=== PATIENT | male | born 1970 | race Caucasian/White ===

== ENCOUNTER 2025-08-06 20:24 | Emergency (ER) | payer OTHER ==
[2025-08-06 22:28] LABS: Absolute Lymphocytes (CBC) 2.4 K/uL (0.7-4.9); Hematocrit 46.6 % (39.6-49.0); Hemoglobin 16.3 g/dL (13.6-17.9); MCH 34.8 pg (27.0-35.0); MCHC 35.0 g/dL (32.0-36.0); MCV 99.6 fL (80-100); MPV 8.1 fL (7.6-11.3); Nucleated RBC Absolute Count 0.0 (0-0); Nucleated Red Blood Cells % 0.0 % (0-0); RBC Red Blood Cell Count 4.68 M/uL (4.33-5.43); White Blood Count 10.20 thou/uL (4.3-10.9)
[2025-08-06 22:53] LABS: Anion Gap 9.5 mEq/L (5.0-15.0); BUN Blood Urea Nitrogen 13.0 mg/dL (7-18); Glucose Level 99.0 mg/dL (74-106); Potassium 3.5 mEq/L (3.5-5.1)
--- NOTE | 2025-08-07 01:55 | ER ---
[facility] Name: Nghia Cr Age: 55 yrs Sex: Male : 1970 Arrival Date: 08/06/2025 Time: 20:24 Bed 3 Private MD: Diagnosis: Pain in throat Presentation: 08/06 20:33 Chief complaint: Patient states: Pain in right side of throat with difficult nh2 swallowing. Went to [facility] swabbed for strep, tested negative. prescribed prednisone. Coronavirus screen: Client denies travel out of the [place] in the last 14 days. At this time, the client does not indicate any symptoms associated with coronavirus-19. Ebola Screen: Patient negative for fever greater than or equal to 101.5 degrees Fahrenheit, and additional compatible Ebola Virus Disease symptoms Patient denies exposure to infectious person. Patient denies travel to an Ebola-affected area in the 21 days before illness onset. No symptoms or risks identified at this time. Initial Sepsis Screen: Does the patient meet any 2 criteria? No. Patient's initial sepsis screen is negative. Initial Sepsis Screen: Does the patient have a suspected source of infection? No. Patient's initial sepsis screen is negative. Risk Assessment: Do you want to hurt yourself or someone else? Patient reports no desire to harm self or others. Onset of symptoms was August 06, 2025 at 14:30. 20:33 Method Of Arrival: Ambulatory nh2 20:33 Acuity: DIALLO 3 nh2 Triage Assessment: 20:39 General: Appears in no apparent distress. comfortable, well groomed, well developed, nh2 Behavior is calm, cooperative, appropriate for age. Pain: Complains of pain in right aspect of posterior pharynx Pain does not radiate. Pain currently is 0 out of 10 on a pain scale. at worst was 10 out of 10 on a pain scale. EENT: Throat is reddened on right. Neuro: Level of Consciousness is awake, alert, obeys commands, Oriented to person, place, time, situation, Appropriate for age. Cardiovascular: Heart tones S1 S2 present Capillary refill < 3 seconds Patient's skin is warm and dry. Respiratory: Airway is patent Respiratory effort is even, unlabored, Respiratory pattern is regular, symmetrical. GI: No deficits noted. No signs and/or symptoms were reported involving the gastrointestinal system. : No deficits noted. No signs and/or symptoms were reported regarding the genitourinary system. Derm: Skin is intact, is healthy with good turgor, Skin is dry, Skin is normal, Skin temperature is warm. Musculoskeletal: Circulation, motion, and sensation intact. Range of motion: intact in all extremities. Historical: - Allergies: 20:38 No Known Allergies; nh2 - PMHx: 20:38 acid reflux; bowel obstruction; High Cholesterol; Hypertension; nh2 - PSHx: 20:38 None; nh2 - Immunization history:: Client reports receiving the 2nd dose of the Covid vaccine. - Infectious Disease History:: Denies. - Social history:: Smoking status: Patient reports the use of cigarette tobacco products, cigars. Screenin:38 [facility] ED Fall Risk Assessment (Adult) History of falling in the last 3 months, nh2 including since admission No falls in past 3 months (0 pts) Confusion or Disorientation No (0 pts) Intoxicated or Sedated No (0 pts) Impaired Gait No (0 pts) Mobility Assist Device Used No (0 pt) Altered Elimination No (0 pt) Score/Fall Risk Level 0 - 2 = Low Risk Oriented to surroundings, Maintained a safe environment, Educated pt \T\ family on fall prevention, incl call for assistance when getting out of bed, Assessed \T\ reinforced patient's understanding of fall precautions, Hourly rounding (assess needs \T\ fall precautionary measures) done. Abuse screen: Denies threats or abuse. Nutritional screening: No deficits noted. Tuberculosis screening: No symptoms or risk factors identified. Assessment: 21:25 General: Appears in no apparent distress. comfortable, Behavior is calm, cooperative, mf3 appropriate for age. Pain: Denies pain. Neuro: Level of Consciousness is awake, alert, obeys commands, Oriented to person, place, time, situation. Cardiovascular: Capillary refill < 3 seconds. Respiratory: Airway is patent Trachea midline. GI: No deficits noted. Derm: No signs and/or symptoms reported regarding the dermatologic system. Musculoskeletal:. 23:26 Reassessment: Patient appears in no apparent distress at this time. No changes from bm8 previously documented assessment. Patient and/or family updated on plan of care and expected duration. Pain level reassessed. Patient is alert, oriented x 3, equal unlabored respirations, skin warm/dry/pink. 08/07 01:49 Reassessment: Patient appears in no apparent distress at this time. Patient and/or bm8 family updated on plan of care and expected duration. Pain level reassessed. Patient is alert, oriented x 3, equal unlabored respirations, skin warm/dry/pink. Patient denies pain at this time. Vital Signs: 08/06 20:33 BP 164 / 96; Pulse 67; Resp 16; Temp 97.3; Pulse Ox 99% ; Weight 120.2 kg; Height 5 ft. nh2 7 in. ; Pain 0/10; 23:26 BP 129 / 67; Pulse 51; Resp 18; Temp 97.3; Pulse Ox 94% ; bm8 08/07 00:03 BP 134 / 80; Pulse 50; Resp 18; Pulse Ox 97% on R/A; bm8 01:49 BP 125 / 72; Pulse 54; Resp 17; Temp 97.3; Pulse Ox 95% on R/A; Pain 0/10; bm8 08/06 20:33 Body Mass Index 41.50 (120.20 kg, 170.18 cm) nh2 08/06 20:33 Pain Scale: Adult nh2 01:49 Pain Scale: Adult bm8 Sejal Coma Score: 08/06 21:26 Eye Response: spontaneous(4). Motor Response: obeys commands(6). Verbal Response: mf3 oriented(5). Total: 15. 23:26 Eye Response: spontaneous(4). Motor Response: obeys commands(6). Verbal Response: bm8 oriented(5). Total: 15. 08/07 00:03 Eye Response: spontaneous(4). Motor Response: obeys commands(6). Verbal Response: bm8 oriented(5). Total: 15. 01:49 Eye Response: spontaneous(4). Verbal Response: oriented(5). Motor Response: obeys bm8 commands(6). Total: 15. ED Course: 08/06 20:29 Patient arrived in ED. im 20:32 Sharon Rosario FNP-C is [facility]. kb 20:32 Florentin Santos MD is Attending Physician. kb 20:37 Triage completed. nh2 20:37 Arm band placed on right wrist. nh2 21:24 Liliane Alcantara, RN is Primary Nurse. mf3 21:26 Patient has correct armband on for positive identification. Call light in reach. Side mf3 rails up X 1. Adult w/ patient. Provided Education on: pt educated on POC. 21:26 No provider procedures requiring assistance completed. Inserted saline lock: 18 gauge mf3 in right antecubital area, using aseptic technique. Blood collected. 23:41 CT Soft Tissue Neck W/contr In Process Unspecified. EDMS 08/07 02:02 IV discontinued, intact, bleeding controlled, No redness/swelling at site. Pressure mf3 dressing applied. Administered Medications: 02:02 Drug: GI Cocktail without - (Maalox PO 30 ml, Lidocaine Mucous Membrane 2 % 15 mf3 ml) PO once Route: PO; Medication: 08/06 20:38 VIS not applicable for this client. nh2 Outcome: 08/07 01:54 Discharge ordered by . justin 02:03 Discharged to home ambulatory, with family, 3 02:03 Condition: good 02:03 Discharge instructions given to patient, family, Instructed on discharge instructions, follow up and referral plans. Demonstrated understanding of instructions, follow-up care, 02:03 Patient left the ED. 3 Signatures: Dispatcher [employer] EDVT Sharon Rosario, AIRCRAFT LINE ASSEMBLER-C AIRCRAFT LINE ASSEMBLER-CkAlejandra Williamson Brad, RN RN bm8 Lexa Stokes Jr RN RN nh2 Liliane Alcantara, RN RN 3
--- NOTE | 2025-08-07 01:55 | EDPHYS ---
Physician Documentation [facility] Name: Nghia Cr Age: 55 yrs Sex: Male : 1970 Arrival Date: 08/06/2025 Time: 20:24 Bed 3 Private MD: ED Physician Florentin Santos HPI: 08/07 00:00 This 55 yrs old Male presents to ER via Ambulatory with complaints of Difficulty kb Swallowing. 00:00 Patient is a 55-year-old male who presents for pain to the right side of his throat kb that is worse with swallowing. Went to [facility] and was swabbed for strep which was negative. He was prescribed prednisone and sent home. States the pain is not any better. Denies fever. Historical: - Allergies: 08/06 20:38 No Known Allergies; nh2 - PMHx: 20:38 acid reflux; bowel obstruction; High Cholesterol; Hypertension; nh2 - PSHx: 20:38 None; nh2 - Immunization history:: Client reports receiving the 2nd dose of the Covid vaccine. - Infectious Disease History:: Denies. - Social history:: Smoking status: Patient reports the use of cigarette tobacco products, cigars. ROS: 08/07 00:00 Constitutional: As per HPI kb Exam: 00:00 Constitutional: This is a well developed, well nourished patient who is awake, alert, kb and in no acute distress. Head/Face: Normocephalic, atraumatic. ENT: Moist Mucous membranes Neck: Trachea midline and no cervical lymphadenopathy. Supple, full range of motion without nuchal rigidity, or vertebral point tenderness. No Meningismus. Respiratory: Respirations even and unlabored. No increased work of breathing. Talking in full sentences Skin: Warm, dry with normal turgor. Normal color. MS/ Extremity: Pulses equal, no cyanosis. Neurovascular intact. Full, normal range of motion. Neuro: Awake and alert, GCS 15, oriented to person, place, time, and situation. Vital Signs: 08/06 20:33 BP 164 / 96; Pulse 67; Resp 16; Temp 97.3; Pulse Ox 99% ; Weight 120.2 kg; Height 5 ft. nh2 7 in. ; Pain 0/10; 23:26 BP 129 / 67; Pulse 51; Resp 18; Temp 97.3; Pulse Ox 94% ; bm8 08/07 00:03 BP 134 / 80; Pulse 50; Resp 18; Pulse Ox 97% on R/A; bm8 01:49 BP 125 / 72; Pulse 54; Resp 17; Temp 97.3; Pulse Ox 95% on R/A; Pain 0/10; bm8 08/06 20:33 Body Mass Index 41.50 (120.20 kg, 170.18 cm) nh2 08/06 20:33 Pain Scale: Adult nh2 01:49 Pain Scale: Adult bm8 Sejal Coma Score: 08/06 21:26 Eye Response: spontaneous(4). Motor Response: obeys commands(6). Verbal Response: mf3 oriented(5). Total: 15. 23:26 Eye Response: spontaneous(4). Motor Response: obeys commands(6). Verbal Response: bm8 oriented(5). Total: 15. 08/07 00:03 Eye Response: spontaneous(4). Motor Response: obeys commands(6). Verbal Response: bm8 oriented(5). Total: 15. 01:49 Eye Response: spontaneous(4). Verbal Response: oriented(5). Motor Response: obeys bm8 commands(6). Total: 15. MDM: 08/06 20:32 Medical Screening Exam initiated kb 08/07 00:00 Differential diagnosis: peritonsillar abscess pharyngitis, retropharyngeal abcess kb tonsillitis. Data reviewed: vital signs, nurses notes. Historians other than the Patient: Spouse/Significant Other: spouse. 01:50 Counseling: I had a detailed discussion with the patient and/or guardian regarding the kb historical points, exam findings, and any diagnostic results supporting the discharge/admit diagnosis, lab results, radiology results, the need for outpatient follow up, a family practitioner, to return to the emergency department if symptoms worsen or persist or if there are any questions or concerns that arise at home. 08/06 20:32 Order name: Group A Streptococcus Rapid; Complete Time: 21:32 kb 08/06 21:09 Order name: CBC with Diff; Complete Time: 22:30 kb 08/06 21:09 Order name: BMP; Complete Time: 22:54 kb 08/06 21:30 Order name: Throat Culture EDAL 08/07 01:54 Order name: COVID-19 Ag + Flu A+B Ag kb 08/06 21:09 Order name: CT Soft Tissue Neck W/contr kb 08/06 21:09 Order name: IV Start; Complete Time: 22:42 kb Administered Medications: 02:02 Drug: GI Cocktail without - (Maalox PO 30 ml, Lidocaine Mucous Membrane 2 % 15 mf3 ml) PO once Route: PO; Disposition: 21:45 Co-signature as Attending Physician, Florentin Santos MD I agree with the assessment sp4 and plan of care. I reviewed the patient's care provided by Advanced Practice Provider \T\ agree w/ the diagnosis \T\ care plan. I personally saw the pt \T\ performed a substantive portion of the visit, incldng all aspects of the (History/Exam/Medical Decision Making). Disposition Summary: 08/07/25 01:54 Discharge Ordered Notes: Location: Home kb Condition: Stable kb Diagnosis - Pain in throat kb Followup: kb - With: Emergency Department - When: As needed - Reason: Worsening of condition Followup: kb - With: Private Physician - When: 2 - 3 days - Reason: Recheck today's complaints, Continuance of care, Re-evaluation by your physician Discharge Instructions: - Discharge Summary Sheet kb - Sore Throat, [id number] kb Forms: - Medication Reconciliation Form kb - Antibiotic Education kb - Prescription Opioid Use kb - Patient Portal Instructions kb - Leadership Thank You Letter kb Signatures: Dispatcher [employer] Sharon Tellez, KALEY-C BURIAL NEEDS SALESPERSON-Florentin Sultana MD MD sp4 Lexa Stokes Jr RN RN cox [place]ett Liliane Alcantara RN RN mf3
[2025-08-07] MEDS ORDERED: MAGNES/ALUMIN/SIMET 30ML UCUP ONE (01:56)
[2025-08-07] MEDS ORDERED: LIDOCAINE VISCOUS 2% 10ML ORAL SOLN ONE (01:56)
[2025-08-07 02:25] LABS: Influenza A Ag Negative; Influenza B Ag Negative; SARS-CoV-2 Antigen Rapid Res Negative (Negative)
[2025-08-07 06:00] VITALS: TEMP 97.3
[2025-08-07 06:04] VITALS: BP 125/72; O2SAT 95
--- NOTE | 2025-08-07 06:04 | RAD REPORT ---
INDICATION: SORE THROAT COMPARISON: No existing relevant imaging studies are available TECHNIQUE: Enhanced CT of the neck was performed per protocol. Multiplanar reconstructions were provided. Dose reduction techniques were utilized for this exam including automated exposure control, adjustmen ts to mA and/or kV according to patient's size, and the use of iterative reconstruction techniques. FINDINGS: PHARYNX: Nasopharynx, oropharynx and hypopharynx are unremarkable. LARYNX: Larynx and upper trachea are unremarkable. TONSILS: None enlarged. Punctate tonsillolith within the left palatine tonsil. ORAL CAVITY: Unremarkable. SALIVARY GLANDS: Parotid and submandibular glands are unremarkable. SOFT TISSUES: Unremarkable. ADENOPATHY: No pathologic adenopathy. THYROID: Unremarkable. SKULL BASE: Unremarkable. LUNG APICES: Clear. OTHER: Multilevel degenerative changes of the cervical spine with post surgical changes from ACDF at C7-T1. Small multilevel disc bulges causing multilevel spinal canal and neural foraminal narrowing. IMPRESSION: No acute findings within the neck. Electronically signed by: Chandana Cornejo DO 08/07/2025 01:46 AM CDT NR Due to temporary technical issues with the PACS/[employer] reporting system, reports are being perla d by the in-house radiologist without review as a courtesy to ensure prompt reporting the interpreting radiologist is fully responsible for the content of the report. Transcribed Date/Time: 08/07/2025 6:04 AM
== END 2025-08-07 02:03 | disposition home or self-care (01) ==
LOC: ER 20:24
DX: R07.0 Pain in throat (principal); Z11.52 Encounter for screening for COVID-19; Z72.0 Tobacco use
CPT/HCPCS: 87070; 85025; 80048; 36415; 70491; 99284; 87428; Q9967